=== PATIENT | female | born 1970 | race Caucasian/White ===

== ENCOUNTER 2018-06-23 10:36 | Emergency (ER) | payer OTHER ==
[~2018-06-23] VITALS: Ht 162.6 cm; Wt 87.1 kg
[2018-06-23] MEDS ORDERED: SYMBICORT 16010.2 GM (11:04)
[2018-06-23] MEDS ORDERED: PREDNISONE20 MG (11:04)
[2018-06-23] MEDS ORDERED: ALBUTEROL0.63 MG/3 (11:05)
[2018-06-24] MEDS ORDERED: HYDROCODONE-CH115 ML PO (09:56)
[2018-06-24] MEDS ORDERED: ZYNCOF 20-400120 ML PO (09:57)
[2018-06-24] MEDS ORDERED: AMOX1TAB5 PO (09:58)
[2018-06-24] MEDS ORDERED: TESSALON PERLE100 M1 PO (09:58)
[2018-06-24] MEDS ORDERED: SINGULAIR 10MG10 MG PO (10:00)
== END 2018-06-24 09:54 | disposition home or self-care (01) ==
LOC: ER 10:36
DX: J45.901 Unspecified asthma with (acute) exacerbation (principal); R05 Cough; J11.1 Influenza due to unidentified influenza virus with other respiratory manifestations